=== PATIENT | male | born 1975 | race Native Hawaiian/Other Pacific Islander ===

== ENCOUNTER 2016-08-16 12:45 | Observation (INO) | payer OTHER ==
[2016-08-16] MEDS ORDERED: diphenhydrAMINE 50 MG/ML 1 ML VIAL IVP STA (13:17)
[2016-08-16] MEDS ORDERED: ASPIRIN 81 MG CHEW PO STA (13:17)
[2016-08-16] MEDS ORDERED: IPRATROPIUM-ALBUTEROL 3 ML NEB INHALATION STA (13:18)
--- NOTE | 2016-08-16 13:20 | ED ---
General Adult HPI - General Chief complaint: Allergic Reaction Stated complaint: Allergic Reaction Time Seen by Provider: 08/16/16 13:07 Source: patient, RN notes reviewed Mode of arrival: wheelchair Limitations: no limitations - History of Present Illness Initial comments: Patient is a 41-year-old male presents to the emergency room for reevaluation of possible ALLERGIC reaction. Patient states he has been dealing with a rash over his face for the past few days. Patient does admit he has a history of eczema. Patient states he went and saw his primary care provider this morning and they placed him on prednisone taper. Patient states he took his first dose of prednisone today. Patient states he took 40 mg. Patient states shortly after around 12:30 he began feeling very short of breath, lightheaded and nauseous. Patient states he was in the movie theater when this happened. Patient states that he ran outside and symptoms got worse. Patient states that he felt like his chest was getting tight so he felt he needed to be evaluated in the emergency room. Patient states since coming to the emergency room the chest tightness has subsided but he is now feeling tightness in his upper abdominal area. Patient denies any cardiac history. Patient does state he has a history of asthma. Patient states he had prednisone before but never had a reaction like this before. Patient denies any recent changes in medications. Patient denies fevers or chills. Patient denies nausea or vomiting. Patient denies headache or dizziness. Patient also admits that he has been trying to work out and lift heavy weights over the past 9 days. Patient denies any other changes in physical activity. - Related Data Home Medications Medication Instructions Recorded Confirmed Fexofenadine/Pseudoephedrine 1 tab PO DAILY 10/22/14 08/16/16 [Rima-D 24 Hour Tablet] Lansoprazole [Lansoprazole] 30 mg PO DAILY 10/22/14 08/16/16 Lisinopril-Hctz 20-12.5 mg 1 tab PO DAILY 10/22/14 08/16/16 [Zestoretic 20-12.5] Live Right Liver Aid 1 tab PO BID 10/22/14 08/16/16 Montelukast [Singulair] 10 mg PO HS 10/22/14 08/16/16 metFORMIN HCL [Glucophage] 500 mg PO BID 10/22/14 08/16/16 Albuterol Sulfate [Proair Hfa] 2 puff INHALATION RT-Q6H PRN 08/16/16 08/16/16 Garlic 1 tab PO HS 08/16/16 08/16/16 Milk Thistle 150 mg PO HS 08/16/16 08/16/16 predniSONE See Taper PO DAILY 08/16/16 08/16/16 Allergies Allergy/AdvReac Type Severity Reaction Status Date / Time shellfish derived Allergy Anaphylaxis Verified 08/16/16 13:10 POWDER IN GLOVES AdvReac Rash/Hives Uncoded 08/16/16 12:50 Review of Systems ROS Statement: Those systems with pertinent positive or pertinent negative responses have been documented in the HPI. ROS Other: All systems not noted in ROS Statement are negative. Past Medical History Past Medical History: Asthma, Diabetes Mellitus, GERD/Reflux, Hypertension, Sleep Apnea/CPAP/BIPAP Additional Past Medical History / Comment(s): ALLERGIES-GETS BIWEEKLY ALLERGY SHOTS History of Any Multi-Drug Resistant Organisms: None Reported Additional Past Surgical History / Comment(s): COLONOSCOPY. EGD. 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 TUBES IN EARS X4. SINUS SX 1991 Past Anesthesia/Blood Transfusion Reactions: No Reported Reaction Past Psychological History: No Psychological Hx Reported Smoking Status: Former smoker Past Alcohol Use History: Rare Additional Past Alcohol Use History / Comment(s): DOES NOT DRINK DAILY BUT USUALLY HAS 7-8 A NIGHT WHEN HE DOES DRINK Past Drug Use History: None Reported - Past Family History Mother Family Medical History: No Reported History General Exam - General Exam Comments Initial Comments: Sitting up in exam room, no acute distress. Limitations: no limitations General appearance: alert, in no apparent distress Head exam: Present: atraumatic, normocephalic, normal inspection Eye exam: Present: normal appearance ENT exam: Present: normal exam Neck exam: Present: normal inspection Respiratory exam: Present: normal lung sounds bilaterally. Absent: respiratory distress Cardiovascular Exam: Present: regular rate, normal rhythm, normal heart sounds Extremities exam: Present: normal inspection Back exam: Present: normal inspection Neurological exam: Present: alert, oriented X3, CN II-XII intact, normal gait Psychiatric exam: Present: normal affect, normal mood Skin exam: Present: warm, dry, intact, normal color. Absent: rash Course Vital Signs 08/16/16 08/16/16 08/16/16 12:47 13:43 13:51 Temperature 97.3 F L Pulse Rate 106 H 93 97 Respiratory 24 Rate Blood Pressure 148/84 O2 Sat by Pulse 100 Oximetry 08/16/16 08/16/16 08/16/16 14:00 15:00 16:00 Temperature 97.7 F 98.9 F Pulse Rate 81 80 82 Respiratory 20 16 18 Rate Blood Pressure 136/64 118/59 128/74 O2 Sat by Pulse 96 97 97 Oximetry EKG Findings - EKG Comments: EKG Findings:: Normal sinus rhythm, ventricular rate 73 bpm, OH interval 154 ms , QRS duration 82 ms, QT/QTC 376/414 ms Medical Decision Making - Medical Decision Making Patient is a 41-year-old male presents emergency to the room for evaluation of chest tightness. Patient initially thought he was having a reaction to prednisone. Patient was given a DuoNeb breathing treatment states the symptoms did improve. Patient does have a history of asthma. First troponin level within normal limits. CK-MB elevated. Patient does admit that he's been working out over the past 9 days. Due to patient's symptoms will keep patient here under observation for repeat troponin levels. Results discussed with patient. Patient states he understands everything that was discussed with him. Case discussed with Dr. Colon. Dr. Colon discussed case with Dr. Connors who agreed to admit patient. - Lab Data Result diagrams: 08/16/16 13:30 08/16/16 13:30 Lab Results 08/16/16 08/16/16 08/16/16 Range/Units 13:30 13:30 13:30 WBC 8.9 (3.8-10.6) k/uL RBC 4.97 (4.30-5.90) m/uL Hgb 16.0 (13.0-17.5) gm/dL Hct 47.4 (39.0-53.0) % MCV 95.5 (80.0-100.0) fL MCH 32.2 (25.0-35.0) pg MCHC 33.7 (31.0-37.0) g/dL RDW 13.0 (11.5-15.5) % Plt Count 220 (150-450) k/uL Neutrophils % 78 % Lymphocytes % 16 % Monocytes % 3 % Eosinophils % 1 % Basophils % 1 % Neutrophils # 6.9 (1.3-7.7) k/uL Lymphocytes # 1.5 (1.0-4.8) k/uL Monocytes # 0.3 (0-1.0) k/uL Eosinophils # 0.1 (0-0.7) k/uL Basophils # 0.1 (0-0.2) k/uL PT (9.0-12.0) sec INR (<1.1) APTT (22.0-30.0) sec Sodium 138 (137-145) mmol/L Potassium 4.7 (3.5-5.1) mmol/L Chloride 104 (98-107) mmol/L Carbon Dioxide 19 L (22-30) mmol/L Anion Gap 15 mmol/L BUN 15 (9-20) mg/dL Creatinine 0.75 (0.66-1.25) mg/dL Est GFR (MDRD) Af Amer >60 (>60 ml/min/1.73 sqM) Est GFR (MDRD) Non-Af >60 (>60 ml/min/1.73 sqM) Glucose 132 H (74-99) mg/dL Calcium 9.5 (8.4-10.2) mg/dL Magnesium 1.7 (1.6-2.3) mg/dL Total Bilirubin 1.1 (0.2-1.3) mg/dL AST 110 H (17-59) U/L ALT 139 H (21-72) U/L Alkaline Phosphatase 85 (38-126) U/L Total Creatine Kinase 1028 H (55-170) U/L CK-MB (CK-2) 5.1 H* (0.0-2.4) ng/mL CK-MB (CK-2) Rel Index 0.5 Troponin I <0.012 (0.000-0.034) ng/mL Total Protein 8.1 (6.3-8.2) g/dL Albumin 4.4 (3.5-5.0) g/dL 08/16/16 Range/Units 13:30 WBC (3.8-10.6) k/uL RBC (4.30-5.90) m/uL Hgb (13.0-17.5) gm/dL Hct (39.0-53.0) % MCV (80.0-100.0) fL MCH (25.0-35.0) pg MCHC (31.0-37.0) g/dL RDW (11.5-15.5) % Plt Count (150-450) k/uL Neutrophils % % Lymphocytes % % Monocytes % % Eosinophils % % Basophils % % Neutrophils # (1.3-7.7) k/uL Lymphocytes # (1.0-4.8) k/uL Monocytes # (0-1.0) k/uL Eosinophils # (0-0.7) k/uL Basophils # (0-0.2) k/uL PT 10.2 (9.0-12.0) sec INR 1.0 (<1.1) APTT 25.3 (22.0-30.0) sec Sodium (137-145) mmol/L Potassium (3.5-5.1) mmol/L Chloride (98-107) mmol/L Carbon Dioxide (22-30) mmol/L Anion Gap mmol/L BUN (9-20) mg/dL Creatinine (0.66-1.25) mg/dL Est GFR (MDRD) Af Amer (>60 ml/min/1.73 sqM) Est GFR (MDRD) Non-Af (>60 ml/min/1.73 sqM) Glucose (74-99) mg/dL Calcium (8.4-10.2) mg/dL Magnesium (1.6-2.3) mg/dL Total Bilirubin (0.2-1.3) mg/dL AST (17-59) U/L ALT (21-72) U/L Alkaline Phosphatase (38-126) U/L Total Creatine Kinase (55-170) U/L CK-MB (CK-2) (0.0-2.4) ng/mL CK-MB (CK-2) Rel Index Troponin I (0.000-0.034) ng/mL Total Protein (6.3-8.2) g/dL Albumin (3.5-5.0) g/dL - Radiology Data Radiology results: report reviewed, image reviewed Disposition Clinical Impression: Unstable angina Disposition: ADMITTED IP TO THIS [facility] Condition: Stable Decision Date: 08/16/16
[2016-08-16 13:50] LABS: Basophils # (A) 0.1 k/uL (0-0.2); Basophils % (A) 1 %; CH 32.1; CHCM 33.7; Eosinophils # (A) 0.1 k/uL (0-0.7); Eosinophils % (A) 1 %; HCT 47.4 % (39.0-53.0); HDW 2.34; Luc # (Auto) 0.16; Luc % (Auto) 2; Lymphocytes # (A) 1.5 k/uL (1.0-4.8); Lymphocytes % (A) 16 %; MCH 32.2 pg (25.0-35.0); MCHC 33.7 g/dL (31.0-37.0); MCV 95.5 fL (80.0-100.0); Mean Platelet Volume 8.9; Monocytes # (A) 0.3 k/uL (0-1.0); Monocytes % (A) 3 %; Neutrophils # (A) 6.9 k/uL (1.3-7.7); Neutrophils % (A) 78 %; RBC 4.97 m/uL (4.30-5.90); WBC 8.9 k/uL (3.8-10.6)
[2016-08-16 13:51] LABS: ALT 139 U/L (21-72); AST 110 U/L (17-59); Alkaline Phosphatase 85 U/L (38-126); Anion Gap 15 mmol/L; Blood Urea Nitrogen 15 mg/dL (9-20); Calcium 9.5 mg/dL (8.4-10.2); Carbon Dioxide 19 mmol/L (22-30); Chloride 104 mmol/L (98-107); Glucose 132 mg/dL (74-99); Magnesium 1.7 mg/dL (1.6-2.3); Non-African American GFR(MDRD) >60 (>60 ml/min/1.73 sqM); Sodium 138 mmol/L (137-145); Total Bilirubin 1.1 mg/dL (0.2-1.3); Total Protein 8.1 g/dL (6.3-8.2)
[2016-08-16 13:52] LABS: Partial Thromboplastin Time 25.3 sec (22.0-30.0); Potassium 4.7 mmol/L (3.5-5.1); Prothrombin Time 10.2 sec (9.0-12.0)
[2016-08-16 14:02] LABS: Creatine Kinase 1028 U/L (55-170)
[2016-08-16 14:15] LABS: Troponin I <0.012 ng/mL (0.000-0.034)
--- NOTE | 2016-08-16 14:16 | XR ---
EXAMINATION TYPE: XR chest 2V DATE OF EXAM: 08/16/2016 2:08 PM COMPARISON: Prior chest x-ray 04 July 2013 HISTORY: Chest pain TECHNIQUE: Frontal and lateral views of the chest are obtained. FINDINGS: There is no focal air space opacity, pleural effusion, or pneumothorax seen. The cardiac silhouette size is within normal limits. There are overlying cardiac leads. The osseous structures a re intact. IMPRESSION: No acute cardiopulmonary process.
[2016-08-16 14:17] LABS: Creatine Kinase MB 5.1 ng/mL (0.0-2.4)
[2016-08-16] MEDS ORDERED: NITROGLYCERIN SL TABS 0.4 MG TAB SUBLINGUAL PRN (16:32)
[2016-08-16] MEDS ORDERED: ALBUTEROL NEBULIZED 2.5 MG/3 ML INHALATION PRN (16:38)
[2016-08-16] MEDS ORDERED: diphenhydrAMINE 50 MG/ML 1 ML VIAL IVP PRN (16:39)
[2016-08-16] MEDS: INSULIN LISPRO (humaLOG) 300 UNIT/3 ML VIAL SQ SCH (17:32)
[2016-08-16 17:37] LABS: Glucose,Whole Blood 138 mg/dL (75-99)
[2016-08-16 19:49] LABS: Creatine Kinase 1109 U/L (55-170)
[2016-08-16 20:02] LABS: Troponin I <0.012 ng/mL (0.000-0.034)
[2016-08-16 20:04] LABS: Creatine Kinase MB 3.9 ng/mL (0.0-2.4)
[2016-08-16] MEDS ORDERED: MONTELUKAST 10 MG TAB PO SCH (21:00)
[2016-08-16 21:28] LABS: Glucose,Whole Blood 133 mg/dL (75-99)
[2016-08-17] MEDS: INSULIN LISPRO (humaLOG) 300 UNIT/3 ML VIAL SQ SCH ×4 (01:12→17:13)
[2016-08-17 01:41] LABS: Creatine Kinase 600 U/L (55-170)
[2016-08-17 01:53] LABS: Troponin I <0.012 ng/mL (0.000-0.034)
[2016-08-17 02:04] LABS: Creatine Kinase MB 2.8 ng/mL (0.0-2.4)
[2016-08-17 06:14] LABS: Glucose,Whole Blood 96 mg/dL (75-99)
[2016-08-17 07:06] LABS: Cholesterol 200 mg/dL (<200); HDL Cholesterol 67 mg/dL (40-60); Triglycerides 90 mg/dL (<150)
[2016-08-17 08:49] VITALS: RESP 16
[2016-08-17] MEDS ORDERED: PANTOPRAZOLE 40 MG TABLET PO SCH (09:00)
[2016-08-17] MEDS ORDERED: ASPIRIN 325 MG TAB PO SCH (09:00)
[2016-08-17] MEDS ORDERED: LISINOPRIL-HCTZ 20-12.5 MG 1 EACH TAB PO SCH (09:00)
[2016-08-17 09:02] LABS: Hemoglobin A1C 5.6 % (4.2-6.1)
[2016-08-17 12:07] LABS: Glucose,Whole Blood 91 mg/dL (75-99)
[2016-08-17] MEDS ORDERED: predniSONE 20 MG TAB PO STA (14:08)
[2016-08-17] MEDS ORDERED: SODIUM CHLORIDE 0.9% 1,000 ML IV SCH (14:15)
[2016-08-17 15:50] VITALS: BP 128/67; PULSE 76; TEMP 97
[2016-08-17 16:30] LABS: Glucose,Whole Blood 95 mg/dL (75-99)
--- NOTE | 2016-08-17 19:06 | HP ---
DATE OF ADMISSION: 08/16/2016 PRESENTING COMPLAINT: "Couldn't breathe." HISTORY OF PRESENTING COMPLAINT: This is a very pleasant 41-year-old patient of Dr. Hernandes whose chronic stable medical conditions include diabetes, GERD, hypertension, sleep apnea; uses a machine. Patient has history of multiple allergies. Used to see Dr. Bijan Hernandez; used to get shots every so often. Then his insurance changed and he could not get the shots anymore because of financial reasons. Patient's just changed their detergent and patient developed a rash all over his body, itchy. Patient went to his family doctor's office, was prescribed steroids. Patient took his first dose of prednisone, went to the theater and bought some popcorn, was inside the theater when patient started feeling tightness in his chest and came out; really could not breathe; got into his car and came to the hospital. Patient was given breathing treatment, after which he felt better, and was also given Benadryl. He was not given steroids, as he thought this may be an allergic reaction to steroids. Patient was feeling actually better after that. There was no trouble swallowing, no throat swelling, no facial swelling, no angioedema. Patient is also trying to work out and since May has lost close to 27 to 30 pounds; has been working out heavily. REVIEW OF SYSTEMS: CONSTITUTIONAL: Tired. HEENT: None. RESPIRATORY: Wheezing. CARDIOVASCULAR: None. GASTROINTESTINAL: Heartburn. GENITOURINARY: None. MUSCULOSKELETAL: None. DERMATOLOGICAL: Itching. HEMATOLOGICAL: None. LYMPHATICS: None. PSYCHIATRY: None. NEUROLOGICAL: None. PAST HISTORY: 1. Asthma. 2. Diabetes. 3. GERD. 4. Hypertension. 5. Sleep apnea. 6. Allergies. PAST SURGICAL HISTORY: 1. Colonoscopy. 2. EGD. 3. Repair of pyloric stenosis as a child. 4. Tubes in the ears x4. SOCIAL HISTORY: Patient used to smoke a few cigarettes a day until about 12 years ago. Patient on Monday and Monday will have close to 36 to 40 beers. Patient is also trying to ( ) Patient is . 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 FAMILY HISTORY: Reviewed; noncontributory to presentation. PHYSICAL EXAMINATION: VITAL SIGNS ON PRESENTATION: Temperature 97.7, pulse 80, respiration 16, blood pressure 108/59, pulse ox 97% on 2 L. GENERAL APPEARANCE: Well built, BMI of 45.8. Sitting up, not in distress. EYES: Pupils equal. Conjunctivae normal. NECK: JVD not raised. Mass not palpable. RESPIRATORY: Effort normal. LUNGS: Diminished breath sounds. CARDIOVASCULAR: First and second sounds normal. No edema. ABDOMEN: Soft, nontender. Liver and spleen not palpable. LYMPHATIC: No lymph node palpable in neck or axillae. PSYCHIATRY: Alert and oriented x3. Mood and affect normal. NEUROLOGICAL: Pupils equal. Cranial nerves grossly intact. Power and sensation grossly intact. INVESTIGATIONS: White count 8.9, hemoglobin 16.0. Potassium 4.7. BUN 15, creatinine normal. Troponin x3 negative. Patient's CPK is 1028. ASSESSMENT: 1. Acute obstructive asthma exacerbation in a patient who has mild intermittent asthma. 2. Morbid obesity; body mass index 45.8. 3. Diabetes mellitus, type 2, on oral hypoglycemic. 4. Gastroesophageal reflux disease. 5. Essential hypertension. 6. Obstructive sleep apnea; uses a machine. 7. Multiple allergies. 8. Acute rhabdomyolysis from excessive workout, slowly coming down. PLAN: Patient did respond well to nebulized bronchodilator. Home medications are resumed. Patient will be given a burst of oral steroid. I did talk to the patient that I highly doubt this is an allergic reaction to steroids, as there are so many other common things. At any rate, patient is going to get steroids right now under supervision and we will see how he does. Care was discussed in detail with the patient, and his mother is also at the bedside. Patient will be given IV fluids to flush his kidneys.
--- NOTE | 2016-08-19 19:12 | DS ---
DATE OF ADMISSION: 08/16/2016 DATE OF DISCHARGE: 08/17/2016 FINAL DIAGNOSES: 1. Acute obstructive asthma exacerbation in a patient who has mild intermittent asthma. 2. Morbid obesity; body mass index of 45.8. 3. Diabetes mellitus, type 2, on oral hypoglycemic. 4. Gastroesophageal reflux disease. 5. Essential hypertension. 6. Obstructive sleep apnea; uses a machine. 7. Multiple allergies. 8. Acute rhabdomyolysis from excessive physical workout. HOSPITAL COURSE: This patient presented with asthma exacerbation; responded well to nebulized bronchodilators. Did tolerate oral prednisone well. Also had rhabdomyolysis that started with exercising. Care was discussed in detail with the patient. On examination, lungs have improved air entry. CARDIOVASCULAR: First and second sounds normal. DISCHARGE MEDICATIONS: 1. Rima D one tablet p.o. daily. 2. Lansoprazole 50 mg p.o. daily. 3. Zestoretic /12.5 one tablet p.o. daily. 4. Singulair 10 mg p.o. at bedtime. 5. Glucophage 500 mg p.o. b.i.d. 6. ProAir 2 puffs q.6 p.r.n. 7. Prednisone taper. Care was discussed with the patient. Follow up with Dr. Hernandes in 3 days.
== END 2016-08-17 19:07 | disposition home or self-care (01) ==
LOC: EC 12:45 → 3OBS 16:31 → 6SEL 17:58
PROVIDERS: ADMIT Hospitalist; ATTEND Hospitalist
DX: J45.21 Mild intermittent asthma with (acute) exacerbation (principal); E66.01 Morbid (severe) obesity due to excess calories; Z68.42 Body mass index [BMI] 45.0-49.9, adult; K21.9 Gastro-esophageal reflux disease without esophagitis; E11.9 Type 2 diabetes mellitus without complications; I10 Essential (primary) hypertension; G47.33 Obstructive sleep apnea (adult) (pediatric); M62.82 Rhabdomyolysis; R21 Rash and other nonspecific skin eruption; J45.909 Unspecified asthma, uncomplicated; R74.8 Abnormal levels of other serum enzymes; L30.9 Dermatitis, unspecified; Z79.899 Other long term (current) drug therapy; Z79.84 Long term (current) use of oral hypoglycemic drugs; Z91.013 Allergy to seafood; Z91.048 Other nonmedicinal substance allergy status; Z99.89 Dependence on other enabling machines and devices; Z87.891 Personal history of nicotine dependence
CPT/HCPCS: 99284; 96374; 36415; 94640; 93005; 80061; 80053; 83036; 82550 ×2; 82553 ×2; 83735; 84484 ×2; 85025; 85610; 85730; 71020; G0378 ×3; J1200 ×2; J7512; 96376

== ENCOUNTER → 2017-04-20 | Outpatient (CLI) | payer OTHER ==
--- NOTE | 2017-04-20 16:24 | MR ---
EXAMINATION TYPE: MR knee LT wo con DATE OF EXAM: 04/20/2017 COMPARISON: None HISTORY: Left knee pain for 5 months per patient. TECHNIQUE: Multiplanar, multisequence images of the knee is performed without IV contrast. FINDINGS: MEDIAL MENISCUS: Anterior and posterior horns are intact without tear. LATERAL MENISCUS: Anterior and posterior horns are intact without tear. CRUCIATE LIGAMENTS: The anterior and posterior cruciate ligaments are intact and unremarkable. COLLATERAL LIGAMENTS: The medial collateral ligament and lateral collateral ligament complex are inta ct and unremarkable. EXTENSOR MECHANISM: Visualized quadriceps and patellar tendons are intact. EFFUSION: No significant suprapatellar joint effusion. POPLITEAL CYST: There is moderate size multiseptated popliteal/morton cyst measuring 5.2 cm long axis sagittal image 26. TRICOMPARTMENT SPACES: There is mild to moderate joint space loss patellofemoral compartment. No sign ificant spurring is seen. CARTILAGE: There is mild thinning of articular cartilage posterior patellar pole inferiorly. No full- thickness loss is present. BONE MARROW SIGNAL: No focal abnormal marrow signal is appreciated. OTHER: There is increased fluid signal prepatellar and superficial infrapatellar subcutaneous tissue. IMPRESSION: 1. Fairly moderate sized septated popliteal cyst. 2. Mild to borderline moderate patellofemoral degenerative changes with early chondromalacia patella. 3. No meniscal or ligamentous tear is seen.
== END | disposition home or self-care (01) ==
LOC: RADMRIMAIN 15:24
PROVIDERS: ATTEND Family Medicine
DX: M71.22 Synovial cyst of popliteal space [Baker], left knee (principal); M22.42 Chondromalacia patellae, left knee

== ENCOUNTER → 2019-01-29 | Outpatient (CLI) | payer BC ==
--- NOTE | 2019-01-29 17:04 | PN ---
PROGRESS NOTE This is a 44-year-old male patient with history of severe obstructive sleep apnea with an AHI of 51. The patient is coming in for a compliancy check, knowing that during his last visit I ordered for him a new CPAP unit. Currently he has a ResMed AutoSet unit which is set at a fixed pressure of 16 cm of water. His EPR is at 3.His humidity level is at 5. He is using a Darby FX nose pillow. He was offered different masks; however, he decided to keep the same one that he has. For now the patient is utilizing his CPAP without any major issues. He is very successful with his treatment. He is benefitting from the treatment. He is averaging around 6-1/2 hours of CPAP use per night. His CPAP use for more than 4 hours is 80%. Leak is 36 L/minute. AHI is down to 3.2 while on treatment. He has no complaints. His [place] score is down to zero. He is alert and awake. His weight has been stable at 345. REVIEW OF SYSTEMS: Fourteen-point review of systems was done. Positive findings are all mentioned above in the history of present illness. No recent weight gain or weight loss. No hypersomnia or sleepiness during the day. No shortness of breath, chest pain, heartburn. No cardiac arrhythmias. No signs of any decompensated heart failure. PHYSICAL EXAMINATION: VITAL SIGNS: BP is 165/66, pulse 86, respirations 16, temperature 98.1. Weight is 346. Saturation 95% on room air. GENERAL APPEARANCE: Calm, comfortable. HEAD: Atraumatic, normocephalic. NECK: Supple. No JVD. No goiter or neck masses. Mallampati IV. LUNGS: Diminished; otherwise clear. HEART: Heart sounds are regular rate and rhythm. Normal S1, S2. No S3, S4. No murmurs. ABDOMEN: Soft, nontender, obese. Organs cannot be adequately palpated. EXTREMITIES: Trace edema. No cyanosis or clubbing. NEUROLOGIC: Awake and alert. There is no focal neurological deficit. PSYCHIATRIC: Negative for anxiety or depression. IMPRESSION: 1. Severe obstructive sleep apnea; apnea/hypopnea index of 51; currently on CPAP pressure of 16. The patient is compliant and he continues to benefit from treatment. 2. Obesity with a stable weight of 345 pounds. 3. Hypertension. 4. Hypersomnia, recovered. [place] score is down to zero. 5. Diabetes mellitus. 6. Bronchial asthma. 7. History of binge alcohol drinking. PLAN: Compliancy was checked. The patient is meeting insurance standards. He should be approved for his new CPAP unit, which is set at a pressure of 16 continuous, Darby FX nose pillows, large size. Encourage weight loss. Optimize sleep hygiene measures. Avoid alcohol drinking, especially on weekends in excess. See me back in a year's time, earlier if needed. For now, his treatment is successful. MMNEHALL / IJN: [id number] /
== END | disposition home or self-care (01) ==
LOC: SLEEP 14:27
PROVIDERS: ATTEND Internal Medicine Critical Care Medicine
DX: G47.33 Obstructive sleep apnea (adult) (pediatric) (principal); E66.9 Obesity, unspecified; I10 Essential (primary) hypertension; E11.9 Type 2 diabetes mellitus without complications; J45.909 Unspecified asthma, uncomplicated; Z99.89 Dependence on other enabling machines and devices

== ENCOUNTER 2021-02-19 08:18 | Emergency (ER) | payer BC ==
[2021-02-19 09:35] LABS: ALT 213 U/L (4-49); AST 203 U/L (17-59); African American GFR (CKD) >90 (>60 ml/min/1.73 sqM); Alkaline Phosphatase 152 U/L (38-126); Anion Gap 10 mmol/L; Blood Urea Nitrogen 7 mg/dL (9-20); Calcium 8.8 mg/dL (8.4-10.2); Carbon Dioxide 24 mmol/L (22-30); Chloride 96 mmol/L (98-107); Glucose 205 mg/dL (74-99); Non-African American GFR(CKD) >90 (>60 ml/min/1.73 sqM); Sodium 130 mmol/L (137-145); Total Bilirubin 1.2 mg/dL (0.2-1.3); Total Protein 7.8 g/dL (6.3-8.2)
[2021-02-19 09:38] LABS: Basophils % (A) 1 %; Eosinophils % (A) 0 %; HCT 47.8 % (39.0-53.0); HGB 16.9 gm/dL (13.0-17.5); Lymphocytes # (A) 0.9 k/uL (1.0-4.8); Lymphocytes % (A) 12 %; MCHC 35.3 g/dL (31.0-37.0); MCV 96.5 fL (80.0-100.0); Mean Platelet Volume 11.9; Monocytes # (A) 0.4 k/uL (0-1.0); Monocytes % (A) 5 %; Neutrophils % (A) 82 %; RBC 4.96 m/uL (4.30-5.90); RDW 13.1 % (11.5-15.5); WBC 7.3 k/uL (3.8-10.6)
--- NOTE | 2021-02-19 09:40 | XR ---
EXAMINATION TYPE: XR chest 2V DATE OF EXAM: 02/19/2021 COMPARISON: Chest x-ray August 16, 2016 HISTORY: Hypoxia, covid positive. TECHNIQUE: Frontal and lateral views of the chest are obtained. FINDINGS: There are bilateral multifocal areas of increased opacity in the mid to lower lungs. No p leural effusion or pneumothorax seen. The cardiac silhouette size is stable and within normal limits. The osseous structures are intact. IMPRESSION: Bilateral multifocal mid to lower lung opacities consistent with known covid-19 infectio n.
[2021-02-19 09:45] LABS: Potassium 4.2 mmol/L (3.5-5.1)
[2021-02-19] MEDS ORDERED: CASIRIVIMAB/IMDEVIMAB (EUA) 1,200 MG in SODIUM CHLORIDE 0.9% 100 ML IVPB ONE (10:00)
[2021-02-19] MEDS ORDERED: SODIUM CHLORIDE 0.9% 50 ML IVPB ONE (10:00)
[2021-02-19 10:03] LABS: Platelet Count 93 k/uL (150-450)
[2021-02-19 10:04] LABS: Large Platelets Present
--- NOTE | 2021-02-19 10:05 | ED ---
URI HPI - General Chief Complaint: Upper Respiratory Infection Stated Complaint: Covid+/sob/low o2 Time Seen by Provider: 02/19/21 08:28 Source: patient, RN notes reviewed Mode of arrival: ambulatory Limitations: no limitations - History of Present Illness Initial Comments: 46-year-old male presented emergency from a complaining of cold-like symptoms fo r the past 7 days. He notes he did test positive several days ago. He notes that symptoms started last Monday with diarrhea. He notes that this morning he was unsure if he threw himself into a panic attack but he was unable to catch his breath. He notes that he had coughing fit and then was finally able to catch his breath. Patient did not have his positive Covid test with him. He did not that he has a past medical history of diabetes asthma and other comorbidities. He was otherwise a well-appearing [age] male. He denied any chest pain headache nausea vomiting diarrhea constipation chills. - Related Data Home Medications Medication Instructions Recorded Confirmed Fexofenadine/Pseudoephedrine 1 tab PO DAILY 10/22/14 08/16/16 [Rima-D 24 Hour Tablet] Lansoprazole 15 mg PO DAILY 10/22/14 08/16/16 Lisinopril-Hctz 20-12.5 mg 1 tab PO DAILY 10/22/14 08/16/16 [Zestoretic 20-12.5] Live Right Liver Aid 2 tab PO BID 10/22/14 08/16/16 Montelukast [Singulair] 10 mg PO HS 10/22/14 08/16/16 metFORMIN HCL [Glucophage] 500 mg PO BID 10/22/14 08/16/16 Albuterol Sulfate [Proair Hfa] 2 puff INHALATION RT-Q6H PRN 08/16/16 08/16/16 Garlic 1 tab PO HS 08/16/16 08/16/16 Milk Thistle 175 mg PO HS 08/16/16 08/16/16 predniSONE See Taper PO DAILY 08/16/16 08/16/16 Allergies Allergy/AdvReac Type Severity Reaction Status Date / Time shellfish derived Allergy Anaphylaxis Verified 08/16/16 13:10 POWDER IN GLOVES AdvReac Rash/Hives Uncoded 08/16/16 12:50 Review of Systems ROS Statement: Those systems with pertinent positive or pertinent negative responses have been documented in the HPI. ROS Other: All systems not noted in ROS Statement are negative. Past Medical History Past Medical History: Asthma, Diabetes Mellitus, GERD/Reflux, Hypertension, Sleep Apnea/CPAP/BIPAP Additional Past Medical History / Comment(s): ALLERGIES-GETS BIWEEKLY ALLERGY SHOTS History of Any Multi-Drug Resistant Organisms: None Reported Additional Past Surgical History / Comment(s): COLONOSCOPY. EGD. 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 TUBES IN EARS X4. SINUS SX 1991, 2013 Past Anesthesia/Blood Transfusion Reactions: No Reported Reaction Past Psychological History: No Psychological Hx Reported Smoking Status: Never smoker Past Alcohol Use History: Occasional Past Drug Use History: None Reported - Past Family History Mother Family Medical History: No Reported History General Exam Limitations: no limitations General appearance: alert, in no apparent distress, obese Head exam: Present: atraumatic, normocephalic, normal inspection Eye exam: Present: normal appearance, PERRL, EOMI. Absent: scleral icterus, conjunctival injection, periorbital swelling ENT exam: Present: normal exam, mucous membranes moist Neck exam: Present: normal inspection Respiratory exam: Present: normal lung sounds bilaterally. Absent: respiratory distress, wheezes, rales, rhonchi, stridor Cardiovascular Exam: Present: regular rate, normal rhythm, normal heart sounds. Absent: systolic murmur, diastolic murmur, rubs, gallop, clicks GI/Abdominal exam: Present: soft, normal bowel sounds. Absent: distended, tenderness, guarding, rebound, rigid Extremities exam: Present: normal inspection, full ROM, normal capillary refill. Absent: tenderness, pedal edema, joint swelling, calf tenderness Neurological exam: Present: alert, oriented X3 Psychiatric exam: Present: normal affect, normal mood Skin exam: Present: warm, dry, intact, normal color. Absent: rash Course Vital Signs 02/19/21 02/19/21 02/19/21 08:20 08:55 09:03 Temperature 98.5 F Pulse Rate 107 H 106 H Respiratory 22 20 20 Rate Blood Pressure 157/95 180/97 O2 Sat by Pulse 96 97 Oximetry Medical Decision Making - Medical Decision Making 46 male Covid-positive with symptoms for the past 7 days. Basic labs, chest x-ray, Covid swab ordered. Chest x-ray shows bilateral multifocal opacities in the lower lobes consistent with Coban 19 infection. Labs unremarkable. Covid test positive. Patient wishes to undergo monoclonal IV antibody infusion. Case discussed with Dr. Colon, patient discharge home after IV infusion. - Lab Data Result diagrams: 02/19/21 08:43 02/19/21 08:43 Lab Results 02/19/21 02/19/21 02/19/21 Range/Units 08:43 08:43 08:43 WBC 7.3 (3.8-10.6) k/uL RBC 4.96 (4.30-5.90) m/uL Hgb 16.9 (13.0-17.5) gm/dL Hct 47.8 (39.0-53.0) % MCV 96.5 (80.0-100.0) fL MCH 34.0 (25.0-35.0) pg MCHC 35.3 (31.0-37.0) g/dL RDW 13.1 (11.5-15.5) % MPV 11.9 Sodium 130 L (137-145) mmol/L Potassium 4.2 (3.5-5.1) mmol/L Chloride 96 L (98-107) mmol/L Carbon Dioxide 24 (22-30) mmol/L Anion Gap 10 mmol/L BUN 7 L (9-20) mg/dL Creatinine 0.60 L (0.66-1.25) mg/dL Est GFR (CKD-EPI)AfAm >90 (>60 ml/min/1.73 sqM) Est GFR (CKD-EPI)NonAf >90 (>60 ml/min/1.73 sqM) Glucose 205 H (74-99) mg/dL Calcium 8.8 (8.4-10.2) mg/dL Total Bilirubin 1.2 (0.2-1.3) mg/dL AST 203 H (17-59) U/L ALT 213 H (4-49) U/L Alkaline Phosphatase 152 H (38-126) U/L Total Protein 7.8 (6.3-8.2) g/dL Albumin 4.0 (3.5-5.0) g/dL Coronavirus (PCR) Detected A (Not Detectd) - Radiology Data Radiology results: report reviewed, image reviewed Chest x-ray: Bilateral multifocal mid to lower lung opacities consistent with known Covid infection. Disposition Clinical Impression: COVID Disposition: HOME SELF-CARE Condition: Stable Instructions (If sedation given, give patient instructions): Upper Respiratory Infection (ED), Coronavirus Disease 2019 (COVID-19) Additional Instructions: Please return to the Emergency Department if symptoms worsen or any other concerns. Follow-up with primary care 1-2 days. Tylenol and Motrin for fevers aches and pains. Is patient prescribed a controlled substance at d/c from ED?: No Referrals: Brijesh Hernandes DO [Primary Care Provider] - 1-2 days Time of Disposition: 10:05
[2021-02-19] MEDS ORDERED: IBUPROFEN 600 MG TAB PO STA (11:05)
[2021-02-19] MEDS ORDERED: ACETAMINOPHEN TAB 325 MG TAB PO STA (11:05)
[2021-02-19 12:52] VITALS: BP 140/90; PULSE 95; RESP 20; TEMP 97.4
== END 2021-02-19 12:52 | disposition home or self-care (01) ==
LOC: EC 08:18
DX: U07.1 COVID-19 (principal); I10 Essential (primary) hypertension; J45.909 Unspecified asthma, uncomplicated; E11.9 Type 2 diabetes mellitus without complications; K21.9 Gastro-esophageal reflux disease without esophagitis; Z79.84 Long term (current) use of oral hypoglycemic drugs
CPT/HCPCS: 99285; 96365; 36415; 80053; 85025; 87635; 71046; Q0243

== ENCOUNTER → 2022-12-16 | Outpatient (CLI) | payer OTHER ==
--- NOTE | 2022-12-16 15:38 | XR ---
EXAMINATION TYPE: XR knee complete RT DATE OF EXAM: 12/16/2022 COMPARISON: NONE HISTORY: 47-year-old male S83.91XA Right knee sprain TECHNIQUE: 3 views FINDINGS: Small knee joint effusion. Minimal scattered tricompartmental degenerative spurring. Extens or mechanism is intact. No acute fracture, subluxation, dislocation. IMPRESSION: 1. Minimal early tricompartmental degenerative spurring. 2. No acute osseous abnormality seen. 3. However, there is a small knee joint effusion. This may be reactive to the patient's injury. If co ncern for internal derangement, MRI can be performed.
== END | disposition home or self-care (01) ==
LOC: RADXRMAIN 14:23
PROVIDERS: ATTEND Emergency Medicine
DX: S83.91XA Sprain of unspecified site of right knee, initial encounter (principal); M17.11 Unilateral primary osteoarthritis, right knee; M25.461 Effusion, right knee; X58.XXXA Exposure to other specified factors, initial encounter

== ENCOUNTER → 2024-06-06 | Outpatient (CLI) | payer BC ==
--- NOTE | 2024-06-06 07:58 | US ---
EXAMINATION TYPE: US abdomen complete DATE OF EXAM: 06/06/2024 COMPARISON: NONE CLINICAL INDICATION: Male, 49 years old with history of E80.6 OTHER DISORDERS OF BILIRUBIN METABOLISM ; TECHNIQUE: Grayscale and color Doppler imaging of the abdomen was performed. FINDINGS: EXAM MEASUREMENTS: Liver Length: 20.2 cm Gallbladder Wall: 0.2 cm CBD: 0.3 cm, color Doppler imaging was utilized to isolate the common bile duct for measurement. Spleen: 10.7 cm Right Kidney: 14.0x5.8x7.3 cm Left Kidney: 13.1x5.8x6.4 cm CAREER GUIDANCE COUNSELOR NOTES: limited exam due to pt body habitus & overlying bowel Pancreas: Obscured by bowel gas Liver: Increased attenuation, decreased visualization of vessels suggestive of fatty infiltrate, dif ficult to penetrate, Enlarged ?Hypoechoic area seen within Lt lobe: 0.9x0.8x1.1cm Gallbladder: No stones seen Evidence for sonographic Cifuentes's sign: No CBD: wnl Spleen: wnl Right Kidney: wnl, No hydronephrosis, calculi or masses seen Left Kidney: wnl, No hydronephrosis, calculi or masses seen Upper IVC: partially visualized, wnl at best seen Abd Aorta: prox: obscured by bowel, mid/dist: partially visualized/limited IMPRESSION: 1. No evidence for acute process. 2. Hepatic steatosis. 3. Simple appearing probable hepatic cysts. [facility], , 06/06/2024 7:56 AM
== END | disposition home or self-care (01) ==
LOC: RADUSWWP 06:52
PROVIDERS: ATTEND Family Medicine
DX: E80.6 Other disorders of bilirubin metabolism (principal); K76.0 Fatty (change of) liver, not elsewhere classified
CPT/HCPCS: 76700